=== PATIENT | male | born 1955 | race Caucasian/White ===

== ENCOUNTER 2022-07-07 19:15 | Inpatient (IN) | payer MEDICARE, OTHER ==
[~2022-07-07] VITALS: Ht 175.3 cm; Wt 93.0 kg
[~2022-07-07 19:15] MED LIST: ALLOPURINOL100 MG; HYDROCHLOROTH12.5 M1; LISINOPRIL2.5 MG; METFORMIN HCL500 MG PO; NIFEDIPINE10 MG
[2022-07-07] MEDS ORDERED: ASPIRIN 81 MG CHEW TAB PO ONE ×2 (19:30→22:15)
[2022-07-07] MEDS ORDERED: ONDANSETRON HCL INJ 2MG/ML 2ML 2 MG/ML VIAL IV STA (19:34)
[2022-07-07] MEDS ORDERED: Morphine 4mg INJECTION 4 MG/ML INJ ONE (19:37)
[2022-07-07] MEDS ORDERED: SODIUM CHLORIDE 0.9% 1000ML 1,000 ML ONE (19:37)
[2022-07-07] MEDS ORDERED: Morphine 2mg Syringe 2 MG/ML SYR IV ONE (19:45)
[2022-07-07] MEDS ORDERED: Morphine 4mg INJECTION 4 MG/ML INJ IV ONE (20:00)
[2022-07-07 20:03] LABS: BASOPHILS # (AUTO) 0.1 (0.0-0.1); BASOPHILS % 0.5 % (0.0-1.0); EOSINOPHILS # (AUTO) 0.1 (0.0-0.4); EOSINOPHILS % 0.9 % (0.0-6.0); HEMATOCRIT 44.8 % (38.2-49.6); HEMOGLOBIN 16.3 g/dL (14.0-18.0); LYMPHOCYTES # (AUTO) 1.6 (1.0-3.2); LYMPHOCYTES % 15.5 % (18.0-39.1); MEAN CORPUSCULAR HGB CONC 36.4 g/dL (31-35); MEAN CORPUSCULAR VOLUME 82.4 fL (81-99); MONOCYTES # (AUTO) 0.9 (0.2-0.8); MONOCYTES % 9.1 % (4.4-11.3); NEUTROPHILS # (AUTO) 7.4 (2.1-6.9); NEUTROPHILS % 73.4 % (38.7-80.0); PLATELET COUNT 339 x10e3/uL (140-360); RED BLOOD COUNT 5.44 x10e6/uL (4.3-5.7); RED CELL DISTRIBUTION WIDTH 13.3 % (11.7-14.4)
[2022-07-07 20:12] LABS: INR 0.83; PARTIAL THROMBOPLASTIN TIME 28.1 seconds (23.8-35.5); PROTHROMBIN TIME 11.9 seconds (11.9-14.5)
[2022-07-07 20:19] LABS: ALANINE AMINOTRANSFERASE 19 IU/L (0-55); ALBUMIN 4.8 g/dL (3.5-5.0); ALBUMIN/GLOBULIN RATIO 1.2 (0.8-2.0); ALKALINE PHOSPHATASE 88 IU/L (40-150); ANION GAP 24.5 mmol/L (8-16); BLOOD UREA NITROGEN 24 mg/dL (7-26); BUN/CREATININE RATIO 24 (6-25); CALCIUM 10.6 mg/dL (8.4-10.2); CARBON DIOXIDE 18 mmol/L (22-29); CHLORIDE 99 mmol/L (98-107); CREATINE KINASE 21 IU/L (30-200); CREATININE, SERUM 1.02 mg/dL (0.72-1.25); GLUCOSE 230 mg/dL (74-118); POTASSIUM 3.5 mmol/L (3.5-5.1); SODIUM 138 mmol/L (136-145)
[2022-07-07] MEDS ORDERED: METOPROLOL TARTRATE INJ 1 MG/ML VIAL IV ONE (22:00)
[2022-07-07] MEDS ORDERED: ONDANSETRON HCL INJ 2MG/ML 2ML 2 MG/ML VIAL IV PRN (22:15)
[2022-07-07] MEDS ORDERED: Morphine 2mg Syringe 2 MG/ML SYR IV PRN (22:15)
[2022-07-07] MEDS ORDERED: DEXTROSE 50% SYRINGE 50 ML IV PRN (22:15)
[2022-07-07] MEDS ORDERED: SODIUM CHLORIDE FLUSH 10 ML SYR INJ PRN (22:15)
[2022-07-07] MEDS: METOPROLOL TARTRATE 25 MG TAB PO SCH (22:57)
[2022-07-08] VITALS (12 sets, daily range): BP systolic 116–140; BP diastolic 59–96
[2022-07-08] MEDS ORDERED: BISACODYL 5 MG TAB EC PO ONE
[2022-07-08] MEDS ORDERED: NEURONTIN100 MG PO (00:13)
[2022-07-08] MEDS ORDERED: TIZANIDINE HCL4 M1 PO (00:13)
[2022-07-08 04:22] LABS: CHOL/HDL RATIO 5.4 (3.9-4.7)
[2022-07-08 04:30] LABS: CREATINE KINASE MB 19.5 ng/mL (0-5.0)
[2022-07-08] MEDS ORDERED: ASPIRIN 81 MG CHEW TAB PO ONE (04:45)
[2022-07-08] MEDS ORDERED: CLOPIDOGREL BISULFATE 75 MG TAB PO ONE (04:45)
[2022-07-08] MEDS ORDERED: SODIUM CHLORIDE 0.9% 1000ML 1,000 ML IV SCH (07:15)
[2022-07-08] MEDS: INSULIN REGULAR, HUMAN 100 UNIT/1 ML SQ SCH ×4 (07:30→21:30)
[2022-07-08] MEDS ORDERED: ASPIRIN 81 MG ENTERIC COATED PO SCH (09:00)
[2022-07-08] MEDS: METOPROLOL TARTRATE 25 MG TAB PO SCH ×2 (09:35→16:49)
[2022-07-08] MEDS ORDERED: HEPARIN SOD/SOD CHLORIDE 2,000 ML ONE (11:17)
[2022-07-08] MEDS ORDERED: HEPARIN SOD (PORCINE) 1000 UNIT/ML 30ML ONE (11:17)
[2022-07-08] MEDS ORDERED: IOPAMIDOL 370 MG/ML 100 ML INFUS..BTL INJ ONE ×2 (11:17→12:15)
[2022-07-08] MEDS ORDERED: LIDOCAINE HCL 2% LOCAL 20 ML VIAL ONE (11:17)
[2022-07-08] MEDS ORDERED: SODIUM CHLORIDE 0.9% 1000ML 1,000 ML ONE (11:18)
[2022-07-08] MEDS ORDERED: NITROGLYCERIN/D5W 200 MCG/ML 250 ML ONE (11:18)
[2022-07-08] MEDS ORDERED: FENTANYL CITRATE/PF 100MCG/2 ML INJ ONE (11:47)
[2022-07-08] MEDS ORDERED: MIDAZOLAM HCL 2 MG/2 ML VIAL ONE (11:47)
[2022-07-08] MEDS ORDERED: SODIUM CHLORIDE 0.9% 100 ML ONE (12:05)
[2022-07-08] MEDS ORDERED: BIVALRIUDIN 250 MG/VIAL VIAL IV ONE (12:05)
[2022-07-08 12:09] LABS: CREATINE KINASE MB 16.7 ng/mL (0-5.0)
[2022-07-08] MEDS ORDERED: PRASUGREL 10 MG TAB ONE (12:29)
[2022-07-08] MEDS: SODIUM CHLORIDE 0.9% 1000ML 1,000 ML IV SCH (13:15)
[2022-07-08] MEDS ORDERED: ONDANSETRON HCL INJ 2MG/ML 2ML 2 MG/ML VIAL IV PRN (13:15)
[2022-07-08] MEDS ORDERED: HYDROCHLOROTHIA25 MG PO (18:50)
[2022-07-08] MEDS ORDERED: ALLOPURINOL300 MG PO (18:50)
[2022-07-08] MEDS ORDERED: NIFEDIPINE ER30 M1 PO (18:50)
[2022-07-08] MEDS ORDERED: GLIPIZIDE5 MG PO (18:50)
[2022-07-08] MEDS ORDERED: METFORMIN HCL500 MG PO (18:50)
[2022-07-08] MEDS: DOCUSATE SODIUM 100 MG CAP PO ONE ×2 (20:35→20:57)
[2022-07-08] MEDS ORDERED: ATORVASTATIN 40 MG TAB PO SCH (21:00)
[2022-07-09] VITALS: BP 140/95
[2022-07-09 04:40] VITALS: BP 133/94
[2022-07-09 06:17] LABS: BASOPHILS % 0.3 % (0.0-1.0); EOSINOPHILS % 0.2 % (0.0-6.0); HEMATOCRIT 43.7 % (38.2-49.6); HEMOGLOBIN 15.3 g/dL (14.0-18.0); LYMPHOCYTES % 16.9 % (18.0-39.1); MEAN CORPUSCULAR HEMOGLOBIN 29.6 pg (28-32); MEAN CORPUSCULAR VOLUME 84.5 fL (81-99); MONOCYTES # (AUTO) 1.3 (0.2-0.8); MONOCYTES % 11.1 % (4.4-11.3); NEUTROPHILS # (AUTO) 8.6 (2.1-6.9); NEUTROPHILS % 71.2 % (38.7-80.0); PLATELET COUNT 311 x10e3/uL (140-360); RED BLOOD COUNT 5.17 x10e6/uL (4.3-5.7); RED CELL DISTRIBUTION WIDTH 13.5 % (11.7-14.4)
[2022-07-09 06:40] LABS: ALBUMIN 3.8 g/dL (3.5-5.0); ALBUMIN/GLOBULIN RATIO 1.1 (0.8-2.0); ANION GAP 18.7 mmol/L (8-16); CALCIUM 9.4 mg/dL (8.4-10.2); CREATININE, SERUM 0.88 mg/dL (0.72-1.25); POTASSIUM 3.7 mmol/L (3.5-5.1)
[2022-07-09] MEDS: INSULIN REGULAR, HUMAN 100 UNIT/1 ML SQ SCH ×2 (07:30→08:48)
[2022-07-09 08:40] VITALS: BP 147/93
[2022-07-09] MEDS: METOPROLOL TARTRATE 25 MG TAB PO SCH (08:44)
[2022-07-09] MEDS: SODIUM CHLORIDE 0.9% 1000ML 1,000 ML IV SCH (08:45)
[2022-07-09] MEDS ORDERED: DOCUSATE SODIUM 100 MG CAP PO SCH (09:00)
[2022-07-09] MEDS ORDERED: PRASUGREL 10 MG TAB PO SCH (09:00)
[2022-07-09] MEDS ORDERED: ASPIRIN 81 MG ENTERIC COATED PO SCH (09:00)
[2022-07-09 09:20] VITALS: BP 147/93
[2022-07-09] MEDS ORDERED: ATORVASTATIN CA40 MG PO (10:08)
[2022-07-09] MEDS ORDERED: TOPROL XL100 MG PO (10:08)
[2022-07-09] MEDS ORDERED: EFFIENT10 MG PO (10:08)
[2022-07-09] MEDS ORDERED: LOSARTAN POTASS25 MG PO (10:08)
[2022-07-09] MEDS ORDERED: FARXIGA5 MG PO (10:10)
[2022-07-09] MEDS ORDERED: ASPIRIN EC81 MG PO (10:32)
[2022-07-09] MEDS ORDERED: METFORMIN HCL500 MG PO (16:54)
== END 2022-07-09 11:34 | disposition home or self-care (01) | DRG 247 ==
LOC: ER 19:32 → UNDOADMOB 22:25 → ERHOLD 22:25 → CATH LAB 07-08 10:59 → MED/SURG2 07-08 13:00
PROVIDERS: ADMIT Internal Medicine; ATTEND Internal Medicine Cardiovascular Disease
PROC: 027135Z Dilation of Coronary Artery, Two Arteries with Two Drug-eluting Intraluminal Devices, Percutaneous Approach (ICD-10-PCS; principal; 2022-07-08)
PROC: 4A023N7 Measurement of Cardiac Sampling and Pressure, Left Heart, Percutaneous Approach (ICD-10-PCS; 2022-07-08)
PROC: B2111ZZ Fluoroscopy of Multiple Coronary Arteries using Low Osmolar Contrast (ICD-10-PCS; 2022-07-08)
PROC: B2141ZZ Fluoroscopy of Right Heart using Low Osmolar Contrast (ICD-10-PCS; 2022-07-08)
DX: I21.4 Non-ST elevation (NSTEMI) myocardial infarction (principal); I50.22 Chronic systolic (congestive) heart failure; I11.0 Hypertensive heart disease with heart failure; E11.69 Type 2 diabetes mellitus with other specified complication; M06.9 Rheumatoid arthritis, unspecified; M10.9 Gout, unspecified; I25.10 Atherosclerotic heart disease of native coronary artery without angina pectoris; M54.32 Sciatica, left side; I73.9 Peripheral vascular disease, unspecified; Z20.822 Contact with and (suspected) exposure to COVID-19; E78.5 Hyperlipidemia, unspecified
CPT/HCPCS: 36415; 71045; 76937; 80053; 80061; 82550; 82553; 82948; 84484; 85025; 85379; 85610; 85730; 92928; 92929; 93005; 93306; 93458; 99152; 99153; 99284; C1760; C1874; C1876; C1887; J0583; J1644; J2001; J2250; J2270; J2405; J7030; J7050; Q9967

== ENCOUNTER 2022-12-27 07:56 | Inpatient (IN) | payer MEDICARE, OTHER ==
[~2022-12-27] VITALS: Ht 175.3 cm; Wt 83.9 kg
[~2022-12-27 07:56] MED LIST changes: +ALLOPURINOL300 MG PO; +ASPIRIN EC81 MG PO; +ATORVASTATIN CA40 MG PO; +EFFIENT10 MG PO; +FARXIGA5 MG PO; +FLOMAX0.4 MG PO; +GLIPIZIDE-METF1 EAC2 PO; +GLIPIZIDE5 MG PO; +HYDROCHLOROTHIA25 MG PO; +LOSARTAN POTASS25 MG PO; +METOPROLOL SUCC50 MG PO; +NEURONTIN100 MG PO; +NEURONTIN300 MG PO; +NIFEDIPINE ER30 M1 PO; +NIFEDIPINE ER90 MG PO; +TIZANIDINE HCL4 M1 PO; +TOPROL XL100 MG PO
[2022-12-27] MEDS ORDERED: ONDANSETRON HCL INJ 2MG/ML 2ML 2 MG/ML VIAL IV STA (08:05)
[2022-12-27 08:19] LABS: BASOPHILS % 0.4 % (0.0-1.0); EOSINOPHILS # (AUTO) 0.1 (0.0-0.4); EOSINOPHILS % 0.9 % (0.0-6.0); HEMATOCRIT 45.1 % (38.2-49.6); HEMOGLOBIN 15.8 g/dL (14.0-18.0); LYMPHOCYTES # (AUTO) 1.6 (1.0-3.2); LYMPHOCYTES % 19.3 % (18.0-39.1); MEAN CORPUSCULAR HEMOGLOBIN 28.2 pg (28-32); MEAN CORPUSCULAR VOLUME 80.4 fL (81-99); MONOCYTES # (AUTO) 0.7 (0.2-0.8); MONOCYTES % 8.3 % (4.4-11.3); NEUTROPHILS # (AUTO) 5.7 (2.1-6.9); PLATELET COUNT 259 x10e3/uL (140-360); RED BLOOD COUNT 5.61 x10e6/uL (4.3-5.7); RED CELL DISTRIBUTION WIDTH 14.1 % (11.7-14.4); WHITE BLOOD COUNT 8.05 x10e3/uL (4.8-10.8)
[2022-12-27 08:38] LABS: ALBUMIN 4.3 g/dL (3.5-5.0); ALBUMIN/GLOBULIN RATIO 1.3 (0.8-2.0); ANION GAP 16.2 mmol/L (8-16); CALCIUM 9.5 mg/dL (8.4-10.2); CREATININE, SERUM 0.88 mg/dL (0.72-1.25); POTASSIUM 4.2 mmol/L (3.5-5.1)
[2022-12-27] MEDS ORDERED: Morphine 4mg INJECTION 4 MG/ML INJ IV ONE (10:15)
[2022-12-27] MEDS ORDERED: ONDANSETRON HCL INJ 2MG/ML 2ML 2 MG/ML VIAL IV PRN (10:45)
[2022-12-27] MEDS ORDERED: DEXTROSE 50% SYRINGE 50 ML IV PRN (12:15)
[2022-12-27] MEDS: METOPROLOL SUCCINATE 50 MG TAB XL PO SCH ×2 (12:45→21:31)
[2022-12-27 15:35] VITALS: BP 147/84; PULSE 91; RESP 18; TEMP 98.4; O2SAT 97
[2022-12-27 15:56] VITALS: BP 147/84; PULSE 91; RESP 18; TEMP 98.4; O2SAT 97
[2022-12-27 16:58] VITALS: BP 117/83; PULSE 94; RESP 19; TEMP 98.1; O2SAT 98
[2022-12-27] MEDS: LOSARTAN POTASSIUM 25 MG TAB PO SCH (17:00)
[2022-12-27] MEDS: GABAPENTIN 300 MG CAP PO SCH (17:24)
[2022-12-27] MEDS: INSULIN REGULAR, HUMAN 100 UNIT/1 ML SQ SCH ×2 (17:28→21:00)
[2022-12-27] MEDS: Morphine 4mg INJECTION 4 MG/ML INJ IV PRN (17:35)
[2022-12-27] MEDS ORDERED: ONE TOUCH ULTR1 EACH (17:40)
[2022-12-27] MEDS ORDERED: LOSARTAN POTASS50 MG (17:40)
[2022-12-27] MEDS ORDERED: METOPROLOL SUCC50 MG (17:40)
[2022-12-27] MEDS ORDERED: EZETIMIBE10 MG (17:40)
[2022-12-27] MEDS ORDERED: PRASUGREL HCL10 MG (17:40)
[2022-12-27] MEDS ORDERED: GABAPENTIN300 MG (17:40)
[2022-12-27] MEDS ORDERED: TIZANIDINE HCL4 MG (17:40)
[2022-12-27 20:00] VITALS: BP 181/98; PULSE 79; RESP 20; TEMP 98.6; O2SAT 100
[2022-12-27] MEDS: ATORVASTATIN 40 MG TAB PO SCH (21:00)
[2022-12-27] MEDS: ACETAMINOPHEN 325 MG TAB PO PRN (21:35)
[2022-12-28] VITALS (8 sets, daily range): BP systolic 141–178; BP diastolic 86–93; PULSE 75–85; RESP 18–20; TEMP 98–98.7; O2SAT 98–100
[2022-12-28] MEDS: Morphine 4mg INJECTION 4 MG/ML INJ IV PRN ×4 (01:16→18:41)
[2022-12-28] MEDS: GABAPENTIN 300 MG CAP PO SCH ×3 (08:49→16:10)
[2022-12-28] MEDS: METOPROLOL SUCCINATE 50 MG TAB XL PO SCH (08:49)
[2022-12-28] MEDS: ALLOPURINOL 300 MG TAB PO SCH (08:49)
[2022-12-28] MEDS: INSULIN REGULAR, HUMAN 100 UNIT/1 ML SQ SCH ×4 (08:56→21:00)
[2022-12-28] MEDS ORDERED: TAMSULOSIN HCL 0.4 MG CAP PO SCH (09:00)
[2022-12-28] MEDS ORDERED: CLONIDINE HCL 0.1 MG TAB PO PRN (11:00)
[2022-12-28] MEDS: LOSARTAN POTASSIUM 25 MG TAB PO SCH (16:11)
[2022-12-28] MEDS: ATORVASTATIN 40 MG TAB PO SCH (21:19)
[2022-12-28] MEDS: TAMSULOSIN HCL 0.4 MG CAP PO SCH (21:19)
[2022-12-29] MEDS: Morphine 4mg INJECTION 4 MG/ML INJ IV PRN ×2 (00:24→06:42)
[2022-12-29 00:52] VITALS: BP 152/95; PULSE 86; RESP 17; TEMP 98.3; O2SAT 99
[2022-12-29 04:00] VITALS: BP 143/91; PULSE 93; RESP 18; TEMP 98.1; O2SAT 100
[2022-12-29 05:27] LABS: BASOPHILS % 0.4 % (0.0-1.0); EOSINOPHILS # (AUTO) 0.2 (0.0-0.4); HEMATOCRIT 43.9 % (38.2-49.6); HEMOGLOBIN 15.3 g/dL (14.0-18.0); LYMPHOCYTES # (AUTO) 2.1 (1.0-3.2); LYMPHOCYTES % 28.3 % (18.0-39.1); MEAN CORPUSCULAR HEMOGLOBIN 28.1 pg (28-32); MEAN CORPUSCULAR HGB CONC 34.9 g/dL (31-35); MEAN CORPUSCULAR VOLUME 80.7 fL (81-99); MONOCYTES # (AUTO) 0.9 (0.2-0.8); MONOCYTES % 11.4 % (4.4-11.3); NEUTROPHILS # (AUTO) 4.3 (2.1-6.9); NEUTROPHILS % 57.5 % (38.7-80.0); PLATELET COUNT 243 x10e3/uL (140-360); RED BLOOD COUNT 5.44 x10e6/uL (4.3-5.7); RED CELL DISTRIBUTION WIDTH 13.9 % (11.7-14.4); WHITE BLOOD COUNT 7.45 x10e3/uL (4.8-10.8)
[2022-12-29 06:13] LABS: ANION GAP 15.1 mmol/L (8-16); CALCIUM 9.1 mg/dL (8.4-10.2); CREATININE, SERUM 0.79 mg/dL (0.72-1.25); POTASSIUM 4.1 mmol/L (3.5-5.1)
[2022-12-29] MEDS: INSULIN REGULAR, HUMAN 100 UNIT/1 ML SQ SCH ×4 (07:30→22:06)
[2022-12-29] MEDS: GABAPENTIN 300 MG CAP PO SCH ×3 (07:30→16:26)
[2022-12-29] MEDS ORDERED: EPHEDRINE SULFATE INJ 50 MG/ML VIAL ONE (08:58)
[2022-12-29] MEDS ORDERED: DEXAMETHASONE SOD PHOS INJ 4 MG/ML SDV ONE (08:58)
[2022-12-29] MEDS ORDERED: KETOROLAC TROMETHAMINE 30 MG/ML VIAL ONE (08:58)
[2022-12-29] MEDS ORDERED: LIDOCAINE HCL 2% LOCAL INJ 5 ML SDV VIAL INJ ONE (08:58)
[2022-12-29] MEDS ORDERED: ONDANSETRON HCL INJ 2MG/ML 2ML 2 MG/ML VIAL ONE (08:58)
[2022-12-29] MEDS ORDERED: PROPOFOL IV EMULSION 10 MG/ML 20 ML VIAL ONE (08:58)
[2022-12-29] MEDS ORDERED: PHENYLEPHRINE HCL 1% 10 MG/ML VIAL ONE (08:58)
[2022-12-29] MEDS ORDERED: SEVOFLURANE INHAL SOLN 250 ML PEN BTL ONE (08:58)
[2022-12-29] MEDS ORDERED: GLYCOPYRROLATE INJ 0.2 MG/ML VIAL ONE (08:58)
[2022-12-29] MEDS: ALLOPURINOL 300 MG TAB PO SCH (09:00)
[2022-12-29] MEDS: METOPROLOL SUCCINATE 50 MG TAB XL PO SCH (09:00)
[2022-12-29 09:02] VITALS: BP 141/68; PULSE 95; RESP 18; TEMP 98.2; O2SAT 99
[2022-12-29] MEDS ORDERED: FENTANYL CITRATE/PF 100MCG/2 ML INJ ONE (09:17)
[2022-12-29] MEDS ORDERED: BUPIVACAINE HCL 0.5% INJ 30 ML VIAL INJ ONE (09:29)
[2022-12-29] MEDS ORDERED: HYDROCODONE/APAP 5MG-325MG TAB PO PRN (10:45)
[2022-12-29] MEDS ORDERED: ONDANSETRON HCL INJ 2MG/ML 2ML 2 MG/ML VIAL IV PRN (10:45)
[2022-12-29 12:31] VITALS: BP 133/71; PULSE 102; RESP 16; TEMP 97.9; O2SAT 98
[2022-12-29 16:00] VITALS: BP 149/87; PULSE 116; RESP 18; TEMP 98.1; O2SAT 98
[2022-12-29] MEDS: SODIUM CHLORIDE 0.9% 1000ML 1,000 ML IV SCH ×2 (16:23→21:56)
[2022-12-29] MEDS: ACETAMINOPHEN 325 MG TAB PO PRN (16:24)
[2022-12-29] MEDS: LOSARTAN POTASSIUM 25 MG TAB PO SCH (16:26)
[2022-12-29] MEDS: CEFAZOLIN SODIUM 2 GM in SODIUM CHLORIDE 0.9% 100 ML IV SCH (16:26)
[2022-12-29 20:00] VITALS: BP 159/87; PULSE 118; RESP 18; TEMP 98; O2SAT 96
[2022-12-29] MEDS: ATORVASTATIN 40 MG TAB PO SCH (21:56)
[2022-12-29] MEDS: TAMSULOSIN HCL 0.4 MG CAP PO SCH (21:56)
[2022-12-30] VITALS: BP 160/84; PULSE 108; RESP 18; TEMP 97.6; O2SAT 97
[2022-12-30] MEDS: CEFAZOLIN SODIUM 2 GM in SODIUM CHLORIDE 0.9% 100 ML IV SCH ×2 (00:20→09:07)
[2022-12-30 08:29] VITALS: BP 149/88; PULSE 100; RESP 18; TEMP 98.1; O2SAT 99
[2022-12-30] MEDS: METOPROLOL SUCCINATE 50 MG TAB XL PO SCH (09:06)
[2022-12-30] MEDS: GABAPENTIN 300 MG CAP PO SCH ×2 (09:06→11:56)
[2022-12-30] MEDS: SODIUM CHLORIDE 0.9% 1000ML 1,000 ML IV SCH (09:06)
[2022-12-30] MEDS: ALLOPURINOL 300 MG TAB PO SCH (09:06)
[2022-12-30] MEDS: INSULIN REGULAR, HUMAN 100 UNIT/1 ML SQ SCH ×2 (09:08→11:56)
[2022-12-30 09:43] VITALS: BP 149/88; PULSE 100; RESP 18; TEMP 98.1; O2SAT 99
[2022-12-30] MEDS ORDERED: ONDANSETRON HCL 4 MG ORAL DISINTEGRATING TAB PO PRN (10:00)
[2022-12-30] MEDS ORDERED: HYDROCODON-ACE1 EA11 PO (15:36)
== END 2022-12-30 13:25 | disposition home or self-care (01) | DRG 419 ==
LOC: ER 08:05 → ERHOLD 10:36 → MED/SURG2 14:52 → OBSVTOIN 12-29 08:45
PROVIDERS: ADMIT Internal Medicine; ATTEND Internal Medicine
PROC: 0FT44ZZ Resection of Gallbladder, Percutaneous Endoscopic Approach (ICD-10-PCS; principal; 2022-12-29 09:43)
DX: K80.00 Calculus of gallbladder with acute cholecystitis without obstruction (principal); I25.10 Atherosclerotic heart disease of native coronary artery without angina pectoris; M19.90 Unspecified osteoarthritis, unspecified site; E11.9 Type 2 diabetes mellitus without complications; I10 Essential (primary) hypertension; E78.00 Pure hypercholesterolemia, unspecified; N40.0 Benign prostatic hyperplasia without lower urinary tract symptoms; K21.9 Gastro-esophageal reflux disease without esophagitis; G89.29 Other chronic pain; M54.9 Dorsalgia, unspecified; M10.9 Gout, unspecified; Z95.5 Presence of coronary angioplasty implant and graft; Z79.899 Other long term (current) drug therapy; I25.2 Old myocardial infarction; Z79.82 Long term (current) use of aspirin; Z20.822 Contact with and (suspected) exposure to COVID-19; K76.0 Fatty (change of) liver, not elsewhere classified
CPT/HCPCS: 36415; 76705; 80048; 80053; 82948; 83690; 85025; 88304; 96372; 99284; G0378; J1100; J1885; J2001; J2270; J2371; J2405; J7030; J7050; U0002